=== PATIENT | male | born 1945 | race Caucasian/White ===

== ENCOUNTER → 2017-08-24 | Outpatient (CLI) | payer OTHER ==
[2017-08-24 10:06] LABS: CREATININE 0.9 mg/dL (0.7-1.3)
== END ==
LOC: CAT 06:26
PROVIDERS: Otolaryngology
DX: M47.892 Other spondylosis, cervical region (principal); R13.10 Dysphagia, unspecified; J34.1 Cyst and mucocele of nose and nasal sinus